=== PATIENT | male | born 1960 | race Caucasian/White ===

== ENCOUNTER 2023-02-26 21:27 | Emergency (ER) | payer BC, SELFPAY ==
[2023-02-26] VITALS (21 sets, daily range): BP systolic 94–153; BP diastolic 66–87; PULSE 67–91; RESP 8–23; TEMP 36.9; O2SAT 94–97; BMI 41.6
--- NOTE | 2023-02-26 21:42 | PC.NURSE ---
patient presents to ED because patient states that he woke up with substernal chest pain. patient states its a stabbing sensation to center of chest. pt states pain occasionally feels like a burning sensation. patient denies pain radiating anywhere. denies sob. 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 hx of stent placement. patient does take a baby aspirin everyday and did take leftover nitro spray but patient states the nitro spray is so it didn't do anything.
--- NOTE | 2023-02-26 21:46 | ECG_ITS ---
The [facility] Test Date: 2023-02-26 Pat Name: LISANDRA RUVALCABA JR Department: Room: - Gender: Male Dog Barber: : 1960 Requested By: [id number] Order Number: [id number] Reading MD: BA MONTERO Measurements Intervals [place] Rate: 70 P: 57 ND: 166 QRS: 265 QRSD: 94 T: 38 QT: 396 QTc: 416 Interpretive Statements 1100 Sinus rhythm 3633 Inferior myocardial infarction, probably old 5120 Possible right ventricular hypertrophy 9150 abnormal ECG No previous ECG available for comparison Electronically Signed On 02-27-2023 7:03:12 EDT by BA MONTERO
--- NOTE | 2023-02-26 21:46 | XR_ITS ---
The [address] [address] Patient Name: LISANDRA RUVALCABA JR MRN: [id number] date: 1960 Sex: M Assigned Patient Location: ER Current Patient Location: ER Accession/Order Number: [id number] Exam Date: 02/26/2023 21:55 Report Date: 02/26/2023 22:54 At the request of: JIM SUE Procedure: XR chest 1V EXAMINATION: XR chest 1V, , 02/26/2023 9:55 PM EDT INDICATION: CP HISTORY: Ordering Provider Reason for Exam: CP Technologist Note: Additional: COMPARISON: None. TECHNIQUE: Chest x-ray: One view. FINDINGS: No pneumothorax, pleural effusion or focal airspace consolidation. Heart is normal in size. Bony thorax is unremarkable. XR/XR chest 1V IMPRESSION: No acute cardiopulmonary process. Electronically authenticated by: ARTIE TORRES Date: 02/26/2023 22:54
[2023-02-26] MEDS: NITROGLYCERIN 0.4 MG BOTTLE PO (21:51)
--- NOTE | 2023-02-26 22:02 | ED_ITS ---
HPI - Chest Pain General Chief Complaint: Chest Pain Stated Complaint: CHEST PAIN Time Seen by Provider: 02/26/23 21:27 Source: patient Mode of arrival: walk-in Limitations: no limitations History of Present Illness HPI narrative: 62-year-old male presents for chest pain. He's had it for just over twelve hours. It's just to the left of the midline and it's been continuous. It doesn't radiate to his jaw or his arms. He has a history of heart disease and has he believes two cardiac stents. The last one was placed in 2013 and he gets yearly stress test. He had one a year ago and he passed it. the pain is mild and continuous. He has no shortness breath fever or cough. he took his aspirin today and he also took nitroglycerin but it five years ago. Related Data Home Medications Medication Instructions Recorded Confirmed aspirin 81 mg chewable tablet 81 mg PO DAILY 02/26/23 02/26/23 buspirone 30 mg tablet 30 mg PO BID 02/26/23 02/26/23 clopidogrel 75 mg tablet (Plavix) 75 mg PO DAILY 02/26/23 02/26/23 rosuvastatin 20 mg tablet (Crestor) 20 mg PO DAILY 02/26/23 02/26/23 tirzepatide 2.5 mg/0.5 mL 2.5 mg subcut QWEEK 02/26/23 02/26/23 subcutaneous pen injector (Mounjaro) Allergies Allergy/AdvReac Type Severity Reaction Status Date / Time morphine Allergy Verified 02/26/23 21:35 Review of Systems ROS Narrative A ten point review of systems is negative except as noted above. [facility] Social History Smoking status: Never smoker Exam Narrative Exam Narrative: Nurses note and vital signs reviewed and patient is not hypoxic. General: The patient appears well and in no apparent distress. Patient is resting comfortably on cart. Skin: Warm, dry, no pallor noted. There is no rash noted. Head: Normocephalic, atraumatic Eye: Normal conjunctiva, no drainage Ears, Nose, Mouth, and Throat: oral mucosa is moist. Nares patent. Cardiovascular: Regular Rate and Rhythm Respiratory: Patient is in no distress, no accessory muscle use, lungs are clear to auscultation, no wheezing, rales or rhonchi Back: non-tender GI: soft and nontender Musculoskeletal: The patient has no evidence of calf tenderness, no pitting edema, symmetrical pulses noted bilaterally Neurological: A&O, normal speech Psychiatric: Cooperative Constitutional Vital Signs, click to edit/add: Last Vital Signs Temp 98.4 F 02/26/23 21:31 Pulse 72 02/27/23 00:15 Resp 16 02/27/23 00:15 BP 111/85 02/27/23 00:15 Pulse Ox 94 L 02/27/23 00:15 O2 Del Method Room Air 02/26/23 21:31 Course Vital Signs Vital signs: Vital Signs Blood Pressure 153/87 H 02/26/23 18:55 Temperature 98.4 F 02/26/23 21:31 Pulse Rate 72 02/27/23 00:15 Respiratory Rate 16 02/27/23 00:15 Blood Pressure 111/85 02/27/23 00:15 Pulse Oximetry 94 L 02/27/23 00:15 Oxygen Delivery Method Room Air 02/26/23 21:31 MDM - Chest Pain MDM Narrative Medical decision making narrative: two sets of cardiac markers are negative and the rest of his workup is negative as well. He was given a gastrointestinal cocktail and feels much better. At this point I do not suspect acute coronary syndrome and he is discharged home. I've no clinical suspicion of pulmonary embolism or aortic dissection. Treatment diag nosis and follow-up were discussed with the patient. Differential Diagnosis Differential diagnosis: Likely pneumothorax, stable angina, unstable angina pectoris, atypical chest pain, st elevation myocardial infarction, costochondritis and chest pain Lab Data Attestation: I reviewed the patient's lab results. Labs: Lab Results 02/26/23 02/26/23 Range/Units 21:40 23:00 WBC 9.7 (4.0-11.0) 10^3/uL RBC 5.21 (4.70-6.10) 10^6/uL Hgb 15.2 (14.0-18.0) g/dL Hct 46.1 (42.0-54.0) % MCV 88.5 (80.0-94.0) fL MCH 29.2 (25.9-34.0) pg MCHC 33.0 (29.9-35.2) g/dL RDW 14.5 (11.0-15.0) % Plt Count 288 (150-450) 10^3/uL MPV 8.6 L (9.5-13.5) fL Neut % (Auto) 54.5 (43.0-75.0) % Lymph % (Auto) 33.4 (20.5-60.0) % [place] % (Auto) 7.8 (1.7-12.0) % Eos % (Auto) 3.7 (0.9-7.0) % Baso % (Auto) 0.4 (0.2-2.0) % Neut # (Auto) 5.3 (1.4-6.5) 10^3/uL Lymph # (Auto) 3.2 (1.2-3.8) 10^3/uL [place] # (Auto) 0.8 (0.3-0.8) 10^3/uL Eos # (Auto) 0.4 (0.0-0.7) 10^3/uL Baso # (Auto) 0.0 (0.0-0.1) 10^3/uL Abs Immat Gran (auto) 0.02 (0.00-0.03) 10^3/uL Imm/Tot Granulo (auto) 0.2 (0.0-0.5) % Sodium 142 (136-145) mmol/L Potassium 3.8 (3.5-5.1) mmol/L Chloride 106 (98-107) mmol/L Carbon Dioxide 24.9 (21.0-32.0) mmol/L Anion Gap 14.9 BUN 10.0 (7.0-18.0) mg/dL Creatinine 1.01 (0.70-1.30) mg/dL Est GFR ( Amer) >60 (>=60) Est GFR (Non-Af Amer) >60 (>=60) BUN/Creatinine Ratio 9.9 Glucose 126 H (74-106) mg/dL Calcium 8.2 L (8.5-10.1) mg/dL Troponin I High Sens 7.6 6.9 (4.0-76.1) pg/mL Imaging Data Chest x-ray: Radiologist's impression: Procedure: XR chest 1V EXAMINATION: XR chest 1V, , 02/26/2023 9:55 PM EDT INDICATION: CP HISTORY: Ordering Provider Reason for Exam: CP Technologist Note: Additional: COMPARISON: None. TECHNIQUE: Chest x-ray: One view. FINDINGS: No pneumothorax, pleural effusion or focal airspace consolidation. Heart is normal in size. Bony thorax is unremarkable. IMPRESSION: No acute cardiopulmonary process. Electronically authenticated by: ARTIE TORRES Date: 02/26/2023 22:54 ECG Data Attestation: I personally reviewed and interpreted this ECG as follows: (EKG on my interpretation shows normal sinus rhythm without acute change and a rate of 70.) Heart Score History: Slightly/Non-Suspicious ECG: Normal Age: >45-<65 years Risk Factors: >3 Risk Factors/ HX of CAD:2 Troponin: <Normal Limit Total Heart Score Recommendations & Risks:: 3 Discharge Plan Discharge Chief Complaint: Chest Pain Clinical Impression: Chest pain Patient Disposition: Home, Self-Care Time of Disposition Decision: 00:40 Condition: Good Mode of Transportation: Private Vehicle Prescriptions / Home Meds: No Action clopidogrel [Plavix] 75 mg tablet 75 mg PO DAILY rosuvastatin [Crestor] 20 mg tablet 20 mg PO DAILY buspirone 30 mg tablet 30 mg PO BID aspirin 81 mg tablet,chewable 81 mg PO DAILY Mounjaro 2.5 mg/0.5 mL pen injector 2.5 mg subcut QWEEK Instructions: Chest Pain (ED) Additional Instructions: call your PCP in the morning Stand Alone Forms: Portal Instructions Referrals: LORIE LAURA MD [Primary Care Provider] - 1 week
[2023-02-26 22:12] LABS: Basophils Percent Auto 0.4 % (0.2-2.0); Eosinophils Absolute Auto 0.4 10^3/uL (0.0-0.7); Eosinophils Percent Auto 3.7 % (0.9-7.0); Hematocrit 46.1 % (42.0-54.0); Hemoglobin 15.2 g/dL (14.0-18.0); Immature Granulocytes Abs Auto 0.02 10^3/uL (0.00-0.03); Immature Granulocytes Pct Auto 0.2 % (0.0-0.5); Lymphocytes Absolute Auto 3.2 10^3/uL (1.2-3.8); Lymphocytes Percent Auto 33.4 % (20.5-60.0); Mean Corpuscular Hemoglobin 29.2 pg (25.9-34.0); Mean Corpuscular Volume 88.5 fL (80.0-94.0); Mean Platelet Volume 8.6 fL (9.5-13.5); Monocytes Absolute Auto 0.8 10^3/uL (0.3-0.8); Monocytes Percent Auto 7.8 % (1.7-12.0); Neutrophils Absolute Auto 5.3 10^3/uL (1.4-6.5); Neutrophils Percent Auto 54.5 % (43.0-75.0); Platelet Count 288 10^3/uL (150-450); Red Blood Count 5.21 10^6/uL (4.70-6.10); Red Cell Distribution Width 14.5 % (11.0-15.0); White Blood Count 9.7 10^3/uL (4.0-11.0)
[2023-02-26 22:29] LABS: Anion Gap 14.9; BUN Creatinine Ratio 9.9; Calcium 8.2 mg/dL (8.5-10.1); Carbon Dioxide 24.9 mmol/L (21.0-32.0); Chloride 106 mmol/L (98-107); Estimated GFR (African America >60 (>=60); Estimated GFR (Non-African Ame >60 (>=60); Glucose 126 mg/dL (74-106); Potassium 3.8 mmol/L (3.5-5.1); Sodium 142 mmol/L (136-145); Troponin I High Sensitivity 7.6 pg/mL (4.0-76.1)
[2023-02-26] MEDS: lidocaine HCL 15 ML, MAG HYDROX/ALUMINUM HYD/SIMETH 30 ML, HYOSCYAMINE SULFATE 0.25 MG PO (23:04)
[2023-02-27] VITALS (8 sets, daily range): BP systolic 111–145; BP diastolic 69–97; PULSE 69–78; RESP 9–22; O2SAT 94–96
[2023-02-27] LABS: Troponin I High Sensitivity 6.9 pg/mL (4.0-76.1)
== END 2023-02-27 00:56 | disposition home or self-care (01) ==
PROVIDERS: Emergency Provider Emergency Medicine; PCP Internal Medicine
DX: R07.9 Chest pain, unspecified (principal); Z79.899 Other long term (current) drug therapy; Z79.82 Long term (current) use of aspirin; Z79.02 Long term (current) use of antithrombotics/antiplatelets
CPT/HCPCS: 36415; 71045; 80048; 84484; 85025; 93005; 99285